=== PATIENT | female | born 1945 | race Caucasian/White ===

== ENCOUNTER → 2017-09-05 | Emergency (ER) | payer MEDICARE, OTHER ==
[~2017-09-05] VITALS: Ht 152.4 cm; Wt 85.9 kg
[~2017-09-05] MED LIST: ALLEGRA 180MG180 MG PO; AMILORIDE HCL/H1 TAB PO; AMILORIDE/HCTZ1 TAB PO; AMOXICILLIN 8751 TAB PO; ASPIRIN 81M81 MG/TA2 PO; ATIVAN0.5 MG PO; BETIMOL 0.5% OPH5 ML OP; CARDI-OMEGA1000 MG PO; DIPHENOXYLATE H1 TAB PO; FEXOFENADINE180 MG PO; FOLIC ACID 40400 MCG PO; GLUCOPHAGE500 MG/TAB PO; GLUCOSAMINE & C1 TER PO; IRON325 M1 PO; KLOR-CON 1010 MEQ PO; METOPROLOL50 MG PO; MILK OF MA400 MG/51 PO; OMEPRAZOLE40 MG PO; PERCOCET 325 MG1 TA2 PO; POTASSIUM-9999 MG PO; PROTONIX40 MG PO; PROTONIX40 MG/Pack PO; TESSALON P100 MG/CAP PO; THERAPEUTIC VIT1 CAP PO; TIMOLOL 0.5% OP10 ML OU; TOPROL XL 50MG50 MG PO; ULTRAM50 MG PO; VITAMIN C PO; VITAMIN D1000 IU PO; VITAMIN D31000 I1 PO; XALATAN EYE DROPS OU; ZETIA 10MG TAB10 MG PO; ZITHROMAX Z PA250 MG PO
[2017-09-05 10:28] VITALS: TEMP 98.4
[2017-09-05 11:06] LABS: BASO % 0.4 % (0.0-2.0); EOS # 0.2 (0.0-0.7); EOS % 2.5 % (0-4.0); GRAN # 3.9 (1.4-6.5); GRAN % 55.2 % (42.2-75.2); HEMOGLOBIN 15.7 g/dl (12.5-16.0); LYMPH # 2.2 (1.2-3.4); LYMPH % 31.1 % (20.0-51.0); MEAN CELL VOLUME 90 fl (80.0-100.0); MEAN CORPUSCULAR HEMOGLOBIN 32 pg (27.0-31.0); MEAN CORPUSCULAR HGB CONC 35 g/dl (33.0-37.0); MEAN PLATELET VOLUME 9.4 fl (7.4-10.4); MONO # 0.7 (0.1-0.6); MONO % 10.4 % (1.7-9.3); PLATELET COUNT 291 K/mm3 (130-400); RED BLOOD COUNT 4.98 M/mm3 (4.10-5.30); REDCELL DISTRIBUTION WIDTH-CV 12.8 % (11.5-14.5)
[2017-09-05 11:15] LABS: ALANINE AMINOTRANSFERASE 71 U/L (9-52); ALBUMIN 4.5 gm/dL (3.5-5.0); ALKALINE PHOSPHATASE 116 U/L (50-136); ANION GAP 10 mmol/L (7-16); AST,SGOT 41 U/L (15-37); BILIRUBIN,TOTAL 0.7 mg/dL (0.0-1.0); BLOOD UREA NITROGEN 14 mg/dL (7-17); C-REACTIVE PROTEIN 1.2 mg/dL (0.0-0.9); CALCIUM 9.3 mg/dL (8.4-10.2); CARBON DIOXIDE 30 mmol/L (22-30); CHLORIDE 96 mmol/L (98-107); GLUCOSE 150 mg/dL (74-106); POTASSIUM 3.8 mmol/L (3.4-5.0); SODIUM 136 mmol/L (137-145); TOTAL PROTEIN 7.6 gm/dL (6.4-8.2)
[2017-09-05 11:25] LABS: INR 1.1 (0.8-3.0); PROTHROMBIN TIME 12.5 SECONDS (9.7-12.8); TROPONIN-I < 0.012 ng/mL (0.000-0.034)
[2017-09-05 11:28] LABS: PARTIAL THROMBOPLASTIN TIME 29.6 SECONDS (26.0-37.0)
[2017-09-05 12:43] VITALS: BP 110/90; PULSE 85
== END ==
LOC: COL.ER 10:09
PROVIDERS: Emergency Medicine
DX: I48.92 Unspecified atrial flutter (principal); I10 Essential (primary) hypertension; E11.9 Type 2 diabetes mellitus without complications; Z79.84 Long term (current) use of oral hypoglycemic drugs; Z79.82 Long term (current) use of aspirin
CPT/HCPCS: J1650; J7050

== ENCOUNTER → 2017-10-23 | Outpatient (CLI) | payer MEDICARE, OTHER | LOC: COL.CARD 08:19 | DX: I48.92 Unspecified atrial flutter (principal) ==

== ENCOUNTER 2018-01-16 06:05 | Emergency (ER) | payer MEDICARE, OTHER ==
[~2018-01-16] VITALS: Ht 152.4 cm; Wt 85.0 kg
[2018-01-16 06:11] VITALS: TEMP 97.5
[2018-01-16] MEDS ORDERED: FISH OIL 1000MG1 CAP PO (06:30)
[2018-01-16 06:35] LABS: BASO # 0.1 (0.0-0.2); BASO % 0.6 % (0.0-2.0); EOS # 0.3 (0.0-0.7); EOS % 2.9 % (0-4.0); GRAN # 6.9 (1.4-6.5); GRAN % 59.5 % (42.2-75.2); HEMOGLOBIN 15.4 g/dl (12.5-16.0); LYMPH # 3.3 (1.2-3.4); LYMPH % 28.8 % (20.0-51.0); MEAN CELL VOLUME 90 fl (80.0-100.0); MEAN CORPUSCULAR HEMOGLOBIN 32 pg (27.0-31.0); MEAN CORPUSCULAR HGB CONC 36 g/dl (33.0-37.0); MEAN PLATELET VOLUME 9.7 fl (7.4-10.4); MONO # 0.9 (0.1-0.6); MONO % 7.8 % (1.7-9.3); PLATELET COUNT 326 K/mm3 (130-400); RED BLOOD COUNT 4.79 M/mm3 (4.10-5.30); REDCELL DISTRIBUTION WIDTH-CV 13.3 % (11.5-14.5)
[2018-01-16 06:39] LABS: PROTHROMBIN TIME 11.9 SECONDS (9.7-12.8)
[2018-01-16 06:40] LABS: ALANINE AMINOTRANSFERASE 41 U/L (9-52); ALBUMIN 4.2 gm/dL (3.5-5.0); ALKALINE PHOSPHATASE 102 U/L (50-136); ANION GAP 13 mmol/L (7-16); AST,SGOT 26 U/L (15-37); BILIRUBIN,TOTAL 0.6 mg/dL (0.0-1.0); BLOOD UREA NITROGEN 14 mg/dL (7-17); CARBON DIOXIDE 24 mmol/L (22-30); CHLORIDE 100 mmol/L (98-107); CREATINE KINASE 64 U/L (30-135); CREATININE, serum 0.57 mg/dL (0.52-1.25); GLUCOSE 153 mg/dL (74-106); POTASSIUM 3.1 mmol/L (3.4-5.0); SODIUM 136 mmol/L (137-145); TOTAL PROTEIN 7.5 gm/dL (6.4-8.2)
[2018-01-16 06:55] LABS: TROPONIN-I < 0.012 ng/mL (0.000-0.034)
[2018-01-16 07:28] LABS: COLLECTION METHOD CLEAN CATCH
[2018-01-16 07:40] LABS: MUCOUS Present /lpf; PH 5 (5-8); SQUAMOUS EPITHELIAL None Seen /hpf; URINE APPEARANCE Clear; URINE BACTERIA None Seen /hpf; URINE BILIRUBIN Negative (NEGATIVE); URINE BLOOD Negative (NEGATIVE); URINE COLOR Straw; URINE GLUCOSE Negative (NEGATIVE); URINE KETONE Negative (NEGATIVE); URINE LEUKOCYTE ESTERASE Negative (NEGATIVE); URINE NITRATE Negative (NEGATIVE); URINE PROTEIN(semi-quant) 1+ (NEGATIVE); URINE RBC 0-2 /hpf; URINE UROBILINOGEN Negative (NEGATIVE)
[2018-01-16] MEDS ORDERED: K-DUR20 MEQ PO ×2 (08:42)
[2018-01-16] MEDS ORDERED: MAG OX 250 PO (08:42)
[2018-01-16] MEDS ORDERED: ELIQUIS 5MG PO (09:08)
[2018-01-16 11:27] VITALS: BP 104/48; PULSE 78
== END 2018-01-16 11:44 | disposition home or self-care (01) ==
LOC: COL.ER 06:05
PROVIDERS: Emergency Medicine
DX: I48.91 Unspecified atrial fibrillation (principal); I10 Essential (primary) hypertension; Z79.84 Long term (current) use of oral hypoglycemic drugs; Z79.82 Long term (current) use of aspirin; Z90.710 Acquired absence of both cervix and uterus; Z98.890 Other specified postprocedural states; Z90.89 Acquired absence of other organs
CPT/HCPCS: J3475; J3480; J7040; J7050

== ENCOUNTER → 2018-03-19 | Outpatient (CLI) | payer MEDICARE, OTHER ==
[~2018-03-19] MED LIST changes: +ELIQUIS 5MG PO; +FISH OIL 1000MG1 CAP PO; +K-DUR20 MEQ PO; +MAG OX 250 PO
== END ==
LOC: COL.PUL 08:00
DX: R06.09 Other forms of dyspnea (principal)

== ENCOUNTER → 2018-05-28 | Outpatient (CLI) | payer MEDICARE, OTHER | LOC: MC.RAD 09:37 | DX: Z12.31 Encounter for screening mammogram for malignant neoplasm of breast (principal) ==

== ENCOUNTER → 2019-07-01 | Outpatient (CLI) | payer MEDICARE, OTHER | LOC: MC.RAD 08:46 | DX: Z12.31 Encounter for screening mammogram for malignant neoplasm of breast (principal) ==

== ENCOUNTER 2020-05-28 09:11 | Inpatient (IN) | payer MEDICARE, OTHER ==
[~2020-05-28] VITALS: Ht 149.9 cm; Wt 84.6 kg
[2020-05-28 10:05] LABS: BASO % 0.4 % (0.0-2.0); EOS # 0.1 (0.0-0.7); GRAN # 6.5 (1.4-6.5); GRAN % 70.5 % (42.2-75.2); HEMATOCRIT 41.6 % (37.0-47.0); HEMOGLOBIN 13.8 g/dl (12.5-16.0); LYMPH # 1.9 (1.2-3.4); LYMPH % 20.6 % (20.0-51.0); MEAN CELL VOLUME 93 fl (80.0-100.0); MEAN CORPUSCULAR HEMOGLOBIN 31 pg (27.0-31.0); MEAN CORPUSCULAR HGB CONC 33 g/dl (33.0-37.0); MEAN PLATELET VOLUME 9.8 fl (7.4-10.4); MONO # 0.7 (0.1-0.6); MONO % 7.2 % (1.7-9.3); PLATELET COUNT 316 K/mm3 (130-400); RED BLOOD COUNT 4.46 M/mm3 (4.10-5.30); REDCELL DISTRIBUTION WIDTH-CV 13.2 % (11.5-14.5)
[2020-05-28 10:07] LABS: INR 1.4 (0.8-3.0); PROTHROMBIN TIME 16.2 SECONDS (9.7-12.8)
[2020-05-28 10:09] LABS: PARTIAL THROMBOPLASTIN TIME 36.4 SECONDS (26.0-37.0)
[2020-05-28 10:15] LABS: ALBUMIN 4.2 gm/dL (3.5-5.0); BILIRUBIN,TOTAL 0.5 mg/dL (0.0-1.0); CALCIUM 9.8 mg/dL (8.4-10.2); CREATININE, serum 0.7 (0.52-1.25); MAGNESIUM 1.8 mg/dL (1.6-2.3); POTASSIUM 3.9 mmol/L (3.4-5.0); TOTAL PROTEIN 6.7 gm/dL (6.4-8.2)
[2020-05-28 10:26] LABS: TROPONIN-I 0.031 ng/mL (0.000-0.035)
[2020-05-28] MEDS ORDERED: MYRBETR25MG PO (13:03)
--- NOTE | 2020-05-28 13:55 | NUR ---
Pt arrives to medical unit rm [id number] from ED via WC, A&O x 4, O2 reconnected at 2 L/min via NC. Pt reports being hungry, denies other needs or c/o at this time. Kitchen notified and lunch ordered. Call light in reach.
[2020-05-28] MEDS ORDERED: VASCEPA1 GM PO (15:15)
[2020-05-28 16:01] VITALS: BP 108/44; PULSE 64; TEMP 98
--- NOTE | 2020-05-28 17:30 | NUR ---
Pt sitting in bed reading a book, denies pain or needs at this time. POC reviewed with pt. Call light in reach.
[2020-05-28] MEDS ORDERED: PROTONIX 40MG T40 MG PO (19:34)
[2020-05-28] MEDS ORDERED: COZAAR 50MG50 MG/TAB PO (19:34)
[2020-05-28] MEDS ORDERED: CARDIZEM120 MG PO (19:35)
[2020-05-28 20:00] VITALS: BP 122/50; PULSE 69; TEMP 98
--- NOTE | 2020-05-28 20:00 | NUR ---
Pt assessment completed and documented. Pt sitting up on edge of bed at this time. Alert and oriented x4. Complaints of bilateral hand pain that pt rates 1/10. INT to left AC CDI. Telemetry on. Pt denies any other needs/concerns at this time. Call light within reach. Will continue to monitor.
[2020-05-28 23:25] VITALS: BP 123/53; PULSE 63; TEMP 97.8
[2020-05-28] MEDS ORDERED: MAGNESIUM250 M1 PO (23:35)
[2020-05-29] MEDS ORDERED: TYLENOL 325MG325 MG PO (01:04)
[2020-05-29 03:35] VITALS: BP 102/47; PULSE 64; TEMP 97.9
--- NOTE | 2020-05-29 06:30 | NUR ---
Pt states she was able to get good sleep overnight. Complaints of bilateral hand pain which improved with movement. Currently resting in bed. Denies any needs/concerns. Call light within reach.
[2020-05-29 07:03] LABS: HEMATOCRIT 37.8 % (37.0-47.0); HEMOGLOBIN 12.6 g/dl (12.5-16.0); MEAN CELL VOLUME 94 fl (80.0-100.0); MEAN CORPUSCULAR HEMOGLOBIN 31 pg (27.0-31.0); MEAN CORPUSCULAR HGB CONC 33 g/dl (33.0-37.0); PLATELET COUNT 285 K/mm3 (130-400); RED BLOOD COUNT 4.01 M/mm3 (4.10-5.30); REDCELL DISTRIBUTION WIDTH-CV 13.2 % (11.5-14.5)
[2020-05-29 07:17] LABS: CALCIUM 8.4 mg/dL (8.4-10.2); CREATININE, serum 0.6 (0.52-1.25); POTASSIUM 3.3 mmol/L (3.4-5.0)
--- NOTE | 2020-05-29 07:28 | NUR ---
Report given to RICHARD Randolph
[2020-05-29 07:46] VITALS: BP 106/50; PULSE 69; TEMP 98.4
--- NOTE | 2020-05-29 09:05 | NUR ---
Initial visit; Patient thanked Worship Director for looking in on her and offering prayer and God's blessings. Worship Director will follow up and keep Nicci in her prayers.
[2020-05-29 12:00] VITALS: BP 116/52; PULSE 76; TEMP 98
[2020-05-29 16:11] VITALS: BP 138/64; PULSE 78
--- NOTE | 2020-05-29 16:23 | NUR ---
Linux Admin met with patient and her , Rakan (ph#[phone]) to discuss discharge planning. Patient lives in [place] with Rakan and sees Dr. Hernandez for primary care. Patient obtains medications from [facility] with no difficulties. Patient has home oxygen from [employer], which she reports was just set up a couple weeks ago. Patient uses a CPAP and no other DME. Patient reports independence with ADLS. Patient has DPOA-HC in EMR which designates her Rakan, daughter Angeline, and son Rakan. Patient states she plans to return home upon discharge. SW will continue to follow as needed.
--- NOTE | 2020-05-29 17:11 | NUR ---
Patient alert and oriented. denies any pain. Morning blood potassium 3.3, replaced per protocol. Patient's spouse visited at bedside. Patient was informed by Cardiology team about Scheduled [facility]earth cath on 05/31/20. Today is day 2 of Sotalol initiation. QTC <500. Patient remained in Sinus rhythm per EKG and Telemetry strip.
[2020-05-29] MEDS ORDERED: ZEBETA10 MG PO (17:18)
[2020-05-29] MEDS ORDERED: LIVALO1 MG PO (17:29)
[2020-05-29 20:28] VITALS: BP 124/57; PULSE 75; TEMP 98.1
--- NOTE | 2020-05-29 21:00 | NUR ---
Resting in bed. Assessment complete. Lungs clear. Heart sounds normal. Bowels active x4. Pulses present throughout. No edema noted. INT right AC flushed without complications. Reports 3/10 back and hip pains. Provided with PRN tylenol. Call light in reach.
[2020-05-29 23:34] VITALS: BP 130/70; PULSE 76; TEMP 97.6
[2020-05-30] VITALS (7 sets, daily range): BP systolic 112–147; BP diastolic 57–69; PULSE 72–87; TEMP 97.5–98.1
--- NOTE | 2020-05-30 00:03 | NUR ---
Resting in bed. Reports 3/10 back and hip pains. Will provide tylenol when due. Call light in reach.
--- NOTE | 2020-05-30 02:28 | NUR ---
Resting in bed. Denies needs. Call light in reach.
--- NOTE | 2020-05-30 04:50 | NUR ---
Rating pain 7/10. Provided with PRN tylenol. Denies other needs. Call light in reach.
--- NOTE | 2020-05-30 06:36 | NUR ---
Patient required tylenol for pain control throughout night. Otherwise uneventful night. Resting in bed this AM. Call light in reach.
[2020-05-30 06:43] LABS: BASO % 0.4 % (0.0-2.0); EOS # 0.2 (0.0-0.7); EOS % 1.8 % (0-4.0); GRAN # 4.4 (1.4-6.5); GRAN % 53.2 % (42.2-75.2); HEMATOCRIT 37.5 % (37.0-47.0); HEMOGLOBIN 12.4 g/dl (12.5-16.0); LYMPH # 2.9 (1.2-3.4); LYMPH % 34.8 % (20.0-51.0); MEAN CELL VOLUME 93 fl (80.0-100.0); MEAN CORPUSCULAR HEMOGLOBIN 31 pg (27.0-31.0); MEAN CORPUSCULAR HGB CONC 33 g/dl (33.0-37.0); MEAN PLATELET VOLUME 9.9 fl (7.4-10.4); MONO # 0.8 (0.1-0.6); MONO % 9.6 % (1.7-9.3); PLATELET COUNT 268 K/mm3 (130-400); RED BLOOD COUNT 4.05 M/mm3 (4.10-5.30); REDCELL DISTRIBUTION WIDTH-CV 12.9 % (11.5-14.5)
--- NOTE | 2020-05-30 06:43 | NUR ---
Report given to RICHARD Randolph
[2020-05-30 06:57] LABS: CALCIUM 8.3 mg/dL (8.4-10.2); CREATININE, serum 0.62 (0.52-1.25); MAGNESIUM 1.8 mg/dL (1.6-2.3); POTASSIUM 3.3 mmol/L (3.4-5.0)
--- NOTE | 2020-05-30 07:22 | NUR ---
Patient is sleeping during report this am.
--- NOTE | 2020-05-30 08:58 | NUR ---
Pt. resting in bed. Assessment completed. O2 @ 2L/hr. Breath sound clear. Telemetry on, HR regular. BLE 2+ pitting edema, no redness, no pain noted. Pt. reports pain 3/10 to lower back. "Achy" lower back. Reported to primary nurse.
--- NOTE | 2020-05-30 18:35 | NUR ---
Patient alert and oriented. gave tylenol for back pain. today is day 3 sotalol. Potassium 3.3, replaced per protocol. patient lost IV site, after several item PICC was ordered. RN informed Elizabeth. PICC was scheduled to be placed tomorrow. PICC order was cancelled for External jugular. Left voicemail on the IV service number [phone]. Patient scheduled for heart cath tomorrow 05/31. Cardiology team discussed heart cath procedure with patient. RN provided patient with additional printout education.
--- NOTE | 2020-05-30 21:00 | NUR ---
Initial shift assessment done- states having some back pain from being in bed--will give tylenol as ordered, Tele on, o2 at 2L/nc, no SOB, will be NPO after MN for heart cath in the AM, no IV access, doctors aware - order for a EJ IV in the am before heart cath.
--- NOTE | 2020-05-30 23:19 | NUR ---
Eliu RAMOSrose grading supervisor was able to get a 22g IV site to left hand! pt relieved to havr IV start done-- will be NPO after mn
[2020-05-31] VITALS (12 sets, daily range): BP systolic 108–145; BP diastolic 58–71; PULSE 66–81; TEMP 97.5–98.9
--- NOTE | 2020-05-31 06:22 | NUR ---
Quiet night- NPO for heart cath, did get her 0600 Aspirin 325mg this morning, consent signed
[2020-05-31 06:50] LABS: HEMATOCRIT 42.3 % (37.0-47.0); HEMOGLOBIN 14.3 g/dl (12.5-16.0); MEAN CELL VOLUME 92 fl (80.0-100.0); MEAN CORPUSCULAR HEMOGLOBIN 31 pg (27.0-31.0); MEAN CORPUSCULAR HGB CONC 34 g/dl (33.0-37.0); MEAN PLATELET VOLUME 10.6 fl (7.4-10.4); PLATELET COUNT 232 K/mm3 (130-400); RED BLOOD COUNT 4.58 M/mm3 (4.10-5.30); REDCELL DISTRIBUTION WIDTH-CV 12.8 % (11.5-14.5)
[2020-05-31 06:55] LABS: INR 1.1 (0.8-3.0); PROTHROMBIN TIME 12.5 SECONDS (9.7-12.8)
[2020-05-31 06:58] LABS: PARTIAL THROMBOPLASTIN TIME 33.5 SECONDS (26.0-37.0)
[2020-05-31 07:05] LABS: CALCIUM 8.7 mg/dL (8.4-10.2); CREATININE, serum 0.55 (0.52-1.25); MAGNESIUM 2.1 mg/dL (1.6-2.3); POTASSIUM 3.7 mmol/L (3.4-5.0)
--- NOTE | 2020-05-31 08:49 | NUR ---
Patient alert and oriented. complain of mild pain on her lower back. Patient currently in Bicycle I Assembler for heart cath.
--- NOTE | 2020-05-31 10:54 | NUR ---
Patient is alert and oriented. laying flat in bed post heart cath. right radial and right femoral was used as access site.
--- NOTE | 2020-05-31 12:49 | NUR ---
Initial visit; Patient resting, Admitting Interviewer informed both her and her of the availability of spiritual care at [facility] and offered them God's blessings.
--- NOTE | 2020-05-31 16:13 | NUR ---
Patient alert and oriented. Went for heart cath. no internvention needed during procedure per hospital laboratory technician nurse. Right radial compression band completely removed at 1430. Dressing on right femoral saturated. RN informed Muriel. hospital laboratory technician nurse assessed site. Pressure was applied for over 10mins. New dressing appear dry and intact. Patient tolerate diet well. at bedside. Patient have v/q scheduled for tomorrow morning. Potassium 3.7 at this time, Potassium protocol ordered as needed. Report given to Gloria.
--- NOTE | 2020-05-31 18:30 | NUR ---
Resumed care for this patient at 1530. She had some bleeding before that time. Dr Ruiz ordered her to lay flat again for 2 hours. Patient stated she was finally able to take a nap. She has been up once to the bathroom since 1739 and did well. Femoral site remains soft and supple, no bleeding, no heamtoma. No bleeding or swelling to right radial site. No other changes at this time. Call light within reach.
[2020-06-01 00:36] VITALS: BP 108/54; PULSE 66; TEMP 97.7
--- NOTE | 2020-06-01 02:24 | NUR ---
Pt was sitting on her bedside when this nurse went for a bedside handover. Pt asked for a tylenol for her headchea, No further needs at this time.
--- NOTE | 2020-06-01 02:25 | NUR ---
Pt assessment completed and chart. Meds provided as per SEP, tolerated well. Pt is settled on her bed, call light is on reach. No further needs at this time.
[2020-06-01 03:32] VITALS: BP 97/46; PULSE 70; TEMP 98.3
--- NOTE | 2020-06-01 06:42 | NUR ---
Pt had an uneventful night, Pt slept on and off through out the night. Tylenol provided as per pt request, on further needs at this time.
[2020-06-01 06:45] LABS: BASO % 0.5 % (0.0-2.0); EOS # 0.1 (0.0-0.7); EOS % 1.9 % (0-4.0); GRAN # 4.4 (1.4-6.5); GRAN % 58.7 % (42.2-75.2); HEMATOCRIT 35.8 % (37.0-47.0); LYMPH # 2.2 (1.2-3.4); LYMPH % 28.8 % (20.0-51.0); MEAN CELL VOLUME 93 fl (80.0-100.0); MEAN CORPUSCULAR HEMOGLOBIN 31 pg (27.0-31.0); MEAN CORPUSCULAR HGB CONC 34 g/dl (33.0-37.0); MEAN PLATELET VOLUME 10.1 fl (7.4-10.4); MONO # 0.7 (0.1-0.6); MONO % 9.8 % (1.7-9.3); PLATELET COUNT 249 K/mm3 (130-400); RED BLOOD COUNT 3.86 M/mm3 (4.10-5.30)
[2020-06-01 06:57] LABS: CALCIUM 8.3 mg/dL (8.4-10.2); CREATININE, serum 0.66 (0.52-1.25); POTASSIUM 3.8 mmol/L (3.4-5.0)
[2020-06-01 07:43] VITALS: BP 145/75; PULSE 75; TEMP 98.3
--- NOTE | 2020-06-01 09:32 | NUR ---
Patient alert and oriented. complained of mild body discomform. Done with Lung function testion. Patient resting in bed. Gave tylenol for body ache. at bedside.
[2020-06-01] MEDS ORDERED: BETAPACE 80MG80 MG PO (10:37)
[2020-06-01 11:36] VITALS: BP 144/73; PULSE 73; TEMP 98.8
[2020-06-01] MEDS ORDERED: LASIX 40MG TABL40 MG PO (14:59)
--- NOTE | 2020-06-01 18:36 | NUR ---
Patient recieved new home medication order for Sotalol and Laxis. Patient was informed about future doctors appointment. INT discontinued. Patient discharge home with spouse.
== END 2020-06-01 15:00 | disposition home or self-care (01) | DRG 280 ==
LOC: COL.ER 09:11 → MEDICAL 11:41
PROVIDERS: Emergency Medicine; Physician Assistant; Student in an Organized Health Care Education/Training Program
PROC: 4A023N6 Measurement of Cardiac Sampling and Pressure, Right Heart, Percutaneous Approach (ICD-10-PCS; principal; 2020-05-31)
PROC: B2111ZZ Fluoroscopy of Multiple Coronary Arteries using Low Osmolar Contrast (ICD-10-PCS; 2020-05-31)
DX: I48.0 Paroxysmal atrial fibrillation (principal); I21.A1 Myocardial infarction type 2; J96.01 Acute respiratory failure with hypoxia; E66.9 Obesity, unspecified; G47.33 Obstructive sleep apnea (adult) (pediatric); E11.9 Type 2 diabetes mellitus without complications; I27.20 Pulmonary hypertension, unspecified; M19.90 Unspecified osteoarthritis, unspecified site; H40.9 Unspecified glaucoma; E87.6 Hypokalemia; R91.1 Solitary pulmonary nodule; Z79.84 Long term (current) use of oral hypoglycemic drugs; Z79.01 Long term (current) use of anticoagulants; Z88.2 Allergy status to sulfonamides; Z88.6 Allergy status to analgesic agent; Z68.35 Body mass index [BMI] 35.0-35.9, adult
CPT/HCPCS: 99232-AI; 99239; A9284; A9540; A9567; C1760; C1769; C1894; G0378; J1644; J1650; J2250; J2704; J3010; J3475; Q9967

== ENCOUNTER → 2020-07-12 | Outpatient (CLI) | payer MEDICARE, OTHER ==
[~2020-07-12] MED LIST changes: +BETAPACE 80MG80 MG PO; +CARDIZEM120 MG PO; +COZAAR 50MG50 MG/TAB PO; +LASIX 40MG TABL40 MG PO; +LIVALO1 MG PO; +MAGNESIUM250 M1 PO; +MYRBETR25MG PO; +PROTONIX 40MG T40 MG PO; +TYLENOL 325MG325 MG PO; +VASCEPA1 GM PO; +ZEBETA10 MG PO
== END ==
LOC: MC.RAD 11:30
DX: Z12.31 Encounter for screening mammogram for malignant neoplasm of breast (principal)

== ENCOUNTER → 2021-08-10 | Outpatient (CLI) | payer MEDICARE, OTHER | LOC: MC.RAD 09:38 | DX: Z12.31 Encounter for screening mammogram for malignant neoplasm of breast (principal) ==

== ENCOUNTER → 2022-05-30 | Outpatient (CLI) | payer MEDICARE, OTHER ==
[~2022-05-30] VITALS: Ht 149.9 cm; Wt 89.0 kg
[~2022-05-30] MED LIST changes: +ALDACTONE 25MG25 M1 PO; +D3-5050000 IU PO; +OPSUMIT; +REVATIO20 MG PO; +THE MEDICINE S200 M2 PO; +[UNRECOGNIZED DRUG - OTHER]
[2022-05-30 09:43] VITALS: BP 137/81; PULSE 75; TEMP 98
[2022-05-30 11:15] VITALS: BP 149/77; PULSE 75
== END ==
LOC: COL.RAD 09:01
DX: M48.061 Spinal stenosis, lumbar region without neurogenic claudication (principal)
CPT/HCPCS: J3301

== ENCOUNTER → 2022-08-13 | Outpatient (CLI) | payer MEDICARE, OTHER ==
[~2022-08-13] MED LIST changes: -FEXOFENADINE180 MG PO; +OPSUMIT PO; +XALATAN EYE DROPS OD; -XALATAN EYE DROPS OU; -[UNRECOGNIZED DRUG - OTHER]; +[UNRECOGNIZED DRUG - OTHER] PO
== END ==
LOC: MC.RAD 10:06
DX: Z12.31 Encounter for screening mammogram for malignant neoplasm of breast (principal)

== ENCOUNTER 2023-08-07 16:52 | Observation (INO) | payer MEDICARE, OTHER ==
[2023-08-07] VITALS (7 sets, daily range): BP systolic 97–140; BP diastolic 53–79; PULSE 79–140; TEMP 98.3–98.6; O2SAT 100
[~2023-08-07] VITALS: Ht 152.4 cm; Wt 79.3 kg
[~2023-08-07 16:52] MED LIST changes: +GLUCOPHAGE XR500 M1 PO; -GLUCOPHAGE500 MG/TAB PO
[2023-08-07] MEDS ORDERED: NS 1,000 ML IV ONE (17:15)
[2023-08-07] MEDS ORDERED: dilTIAZem 25 MG/5 ML VIAL IV ONE (17:30)
[2023-08-07 17:48] LABS: BASO % 0.3 % (0.0-2.0); EOS # 0.3 K/mm3 (0.0-0.7); GRAN # 8.7 K/mm3 (1.4-6.5); GRAN % 67.9 % (42.2-75.2); HEMATOCRIT 44.6 % (37.0-47.0); HEMOGLOBIN 14.9 g/dl (12.5-16.0); LYMPH # 2.4 K/mm3 (1.2-3.4); LYMPH % 18.9 % (20.0-51.0); MEAN CELL VOLUME 91 fl (80.0-100.0); MEAN CORPUSCULAR HEMOGLOBIN 30 pg (27-31); MEAN CORPUSCULAR HGB CONC 33 g/dl (33.0-37.0); MEAN PLATELET VOLUME 9.8 fl (7.4-10.4); MONO # 1.3 K/mm3 (0.1-0.6); MONO % 10.2 % (1.7-9.3); PLATELET COUNT 485 K/mm3 (130-400); RED BLOOD COUNT 4.92 M/mm3 (4.10-5.30); REDCELL DISTRIBUTION WIDTH-CV 13.5 % (11.5-14.5)
[2023-08-07 18:04] LABS: ALANINE AMINOTRANSFERASE 22 U/L (0-55); ALBUMIN 4.1 gm/dL (3.4-4.8); ALKALINE PHOSPHATASE 109 U/L (40-150); ANION GAP 12 mmol/L (7-16); AST,SGOT 16 U/L (5-34); BILIRUBIN,TOTAL 0.5 mg/dL (0.2-1.2); BLOOD UREA NITROGEN 17 mg/dL (10-20); CALCIUM 9.5 mg/dL (8.4-10.2); CARBON DIOXIDE 26 mmol/L (23-31); CHLORIDE 99 mmol/L (98-107); CREATINE KINASE 40 U/L (29-168); CREATININE, serum 0.86 mg/dL (0.57-1.11); GLUCOSE 131 mg/dL (70-99); POTASSIUM 3.7 mmol/L (3.5-4.5); SODIUM 137 mmol/L (136-145); TOTAL PROTEIN 7.9 gm/dL (6.2-8.1)
[2023-08-07 18:12] LABS: TROPONIN-I < 0.010 ng/mL (0.00-0.033)
[2023-08-07 18:14] LABS: INR 1.4 (0.8-3.0); PROTHROMBIN TIME 14.6 SECONDS (9.7-12.8)
[2023-08-07] MEDS ORDERED: Potassium Bicarbonate/Citrate 20 MEQ Effervescent TAB PO SCH (19:15)
[2023-08-07] MEDS ORDERED: Acetaminophen 325 MG TAB PO PRN ×2 (19:15→21:15)
[2023-08-07] MEDS ORDERED: *Potassium Replacement Protocol MC SCH (19:15)
[2023-08-07] MEDS ORDERED: LIVALO4 MG PO (20:08)
[2023-08-07] MEDS ORDERED: B-121000 MCG PO (20:13)
[2023-08-07] MEDS ORDERED: MAG OX 250 PO (20:14)
[2023-08-07] MEDS ORDERED: [UNRECOGNIZED DRUG - REMARK] PO SCH (20:15)
[2023-08-07] MEDS ORDERED: Apixaban 5 MG TAB PO SCH (21:00)
[2023-08-07] MEDS ORDERED: Cholecalciferol (Vit D3) 1000 Units TAB PO SCH (21:00)
--- NOTE | 2023-08-07 21:11 | NUR ---
Report received from ED RN at this time.
[2023-08-07] MEDS ORDERED: Dextrose 50% Water 25 GM/50 ML SYRINGE IV PRN (21:30)
[2023-08-07] MEDS ORDERED: Dextrose (Glucose) 15 GM (4 x 3.75 GM) Chewable TABLET PACK PO PRN (21:30)
[2023-08-07] MEDS ORDERED: Glucagon 1 MG VIAL IM PRN (21:30)
--- NOTE | 2023-08-07 23:40 | NUR ---
Spoke with ARMEN Zambrano about blood pressures-patient currently on cardizem drip. Tele reporting SR. New orders received for STAT EKG to verify. RT notified and at bedside. Patient states she could feel herself go back into a normal rhythm. Denies chest pain/shortnessof breath/nausea. Will continue to monitor VS q1h.
[2023-08-08] VITALS (18 sets, daily range): BP systolic 100–155; BP diastolic 46–84; PULSE 64–84; TEMP 97.7–98.4
--- NOTE | 2023-08-08 06:06 | NUR ---
Patient had an uneventful night. Remained in SR on tele with cardizem at 15mg/hr. VS remained stable. Denied pain/nausea/shortness of breath. Stool was sent down for C diff-waiting results. Denies current questions/concerns. Call light in reach. Will monitor.
--- NOTE | 2023-08-08 06:48 | NUR ---
Bedside report given to RICHARD Barreto.
--- NOTE | 2023-08-08 07:00 | NUR ---
PATIENT AWAKE AND ALERT, SITITNG PU IN BED. PATIENT DENIES ANY NEEDS OR COMPLAINTS AT THIS TIME.PATIENT VERBALIZED UNDERSTANDING OF NPO ORDER UNTIL CARDIOLOGY ROUNDS. CALL LIGHT WITHIN REACH.
[2023-08-08 07:07] LABS: CLOSTRIDIUM DIFF A/B NEG
[2023-08-08 07:54] LABS: CALCIUM 8.5 mg/dL (8.4-10.2); CREATININE, serum 0.63 mg/dL (0.57-1.11); POTASSIUM 3.6 mmol/L (3.5-4.5)
[2023-08-08] MEDS ORDERED: Furosemide 80 MG TAB PO SCH (08:00)
[2023-08-08 08:03] LABS: BASO % 0.3 % (0.0-2.0); EOS # 0.3 K/mm3 (0.0-0.7); EOS % 2.6 % (0.0-4.0); GRAN # 5.1 K/mm3 (1.4-6.5); GRAN % 52.2 % (42.2-75.2); LYMPH # 2.8 K/mm3 (1.2-3.4); LYMPH % 29.4 % (20.0-51.0); MEAN CELL VOLUME 91 fl (80.0-100.0); MEAN CORPUSCULAR HGB CONC 33 g/dl (33.0-37.0); MEAN PLATELET VOLUME 9.6 fl (7.4-10.4); MONO # 1.4 K/mm3 (0.1-0.6); MONO % 14.9 % (1.7-9.3); RED BLOOD COUNT 4.05 M/mm3 (4.10-5.30); REDCELL DISTRIBUTION WIDTH-CV 13.8 % (11.5-14.5)
[2023-08-08 08:05] LABS: MEAN CORPUSCULAR HEMOGLOBIN 30 pg (27-31)
[2023-08-08 08:06] LABS: PLATELET COUNT 299 K/mm3 (130-400)
[2023-08-08 08:07] LABS: HEMOGLOBIN 12.1 g/dl (12.5-16.0)
[2023-08-08] MEDS ORDERED: Patient's Own Medication Item PO SCH (09:00)
[2023-08-08] MEDS ORDERED: Fexofenadine 180 MG **** subs to Loratadine 10 MG PO SCH (09:00)
[2023-08-08] MEDS ORDERED: Loratadine 10 MG TAB PO SCH (09:00)
[2023-08-08] MEDS ORDERED: Magnesium Oxide 400 MG TAB PO SCH (09:00)
--- NOTE | 2023-08-08 10:02 | NUR ---
cardizem drip discontinued. PATINETS VITALS STABLE, SHE IS AWAKE AND ALERT, SITTING UP IN BED EATING BREAKFAST
[2023-08-08] MEDS ORDERED: Albuterol 90 MCG/PUFF 8 GM MDI IH PRN (11:15)
--- NOTE | 2023-08-08 11:16 | NUR ---
apron worker and student Teresa met with pt to complete discharge planning. She reports to live with her , Rakan [phone] in [place]. She sees Dr. Romero and obtains medications from [facility] with no difficulties. She is indpendent with ADLS and uses a CPAP for DME. She reports she has stairs at home, but has lived there for many years. Pt intends to return home at discharge, but expressed concerns if that was today. Discharge Plan: Home
[2023-08-08] MEDS ORDERED: Ezetimibe 10 MG TAB PO SCH (18:00)
[2023-08-08] MEDS ORDERED: Spironolactone 25 MG TAB PO SCH (18:00)
--- NOTE | 2023-08-08 19:20 | NUR ---
BEDSIDE REPORT COMPLETE. PATIENT AWAKE AND ALERT, SITTING EDGE OF BED. PATINET RICHARD LIGHT WITHIN REACH
[2023-08-08] MEDS ORDERED: Insulin Aspart (NovoLOG) SQ SCH ×2 (21:00)
[2023-08-09] VITALS: BP_SYST 104
[2023-08-09 02:40] VITALS: BP 124/73; PULSE 75; TEMP 98.2
[2023-08-09 04:00] VITALS: BP_SYST 124
[2023-08-09 07:03] VITALS: BP 117/72; PULSE 75; TEMP 97.9
[2023-08-09] MEDS ORDERED: BETAPACE 120MG120 MG PO (08:40)
[2023-08-09] MEDS ORDERED: Atorvastatin 40 MG TAB PO SCH (09:00)
[2023-08-09 09:44] VITALS: BP_SYST 117
--- NOTE | 2023-08-09 11:37 | NUR ---
PATIENT IV AND TELE REMOVED. PATIENT GIVEN DISCHARGE INSTRUCTIONS AND EDUCATION. PATIENTS AT BEDSIDE. PATIENT TAKEN VIA WHEELCHAIR TO ER ENTRANCE WHERE SHE LEFT IN STABLE CONDITION
--- NOTE | 2023-08-09 12:07 | NUR ---
Data: Print Buyer visit attempted during Print Buyer rounds. Assessment: No one in room; hospital gown on bed. Appears that Patient has been discharged. Plan of Care: Print Buyer confirmed in other notes that Patient has been discharged.
== END 2023-08-09 11:30 | disposition home or self-care (01) ==
LOC: COL.ER 16:52 → MEDICAL 19:15
PROVIDERS: Emergency Medicine; Nurse Practitioner Family; ADMIT Internal Medicine
DX: I48.0 Paroxysmal atrial fibrillation (principal); R65.10 Systemic inflammatory response syndrome (SIRS) of non-infectious origin without acute organ dysfunction; I10 Essential (primary) hypertension; I07.1 Rheumatic tricuspid insufficiency; E11.9 Type 2 diabetes mellitus without complications; K21.9 Gastro-esophageal reflux disease without esophagitis; E87.6 Hypokalemia; J96.11 Chronic respiratory failure with hypoxia; G47.33 Obstructive sleep apnea (adult) (pediatric); I27.20 Pulmonary hypertension, unspecified; Z79.01 Long term (current) use of anticoagulants; Z79.899 Other long term (current) drug therapy; Z79.84 Long term (current) use of oral hypoglycemic drugs
CPT/HCPCS: G0378; J1815; J7030

== ENCOUNTER → 2023-08-14 | Outpatient (CLI) | payer MEDICARE, OTHER ==
[~2023-08-14] MED LIST changes: +B-121000 MCG PO; +BETAPACE 120MG120 MG PO; +LIVALO4 MG PO
== END ==
LOC: MC.RAD 08:02
DX: Z12.31 Encounter for screening mammogram for malignant neoplasm of breast (principal)

== ENCOUNTER → 2023-08-20 | Outpatient (RCR) | payer MEDICARE | END | disposition home or self-care (01) | LOC: COL.CR | DX: I27.0 Primary pulmonary hypertension (principal) | CPT/HCPCS: G0237; G0238; G0239 ==

== ENCOUNTER 2023-10-31 16:26 | Outpatient (RCR) | payer MEDICARE, OTHER | END 2023-11-03 16:23 | disposition home or self-care (01) | LOC: COL.CR 16:26 | DX: I27.0 Primary pulmonary hypertension (principal) | CPT/HCPCS: G0239 ==